=== PATIENT | female | born 1935 | race Caucasian/White ===

== ENCOUNTER 2023-07-22 08:09 | Inpatient (IN) ==
[~2023-07-22 08:09] MED LIST: Buffered Lidocaine 1% SYRIN 1 ml INTRADERM ONE; Famotidine IV 10 MG/ML 2 ml VIAL (20 mg) IV ONE; Lactated Ringers 1000 ml BAG 1,000 ML IV SCH
[2023-07-22] MEDS ORDERED: Tranexamic Acid 1 GM/100ML BAG 2,000 MG/200 ML BAG IV ONE (08:47)
[2023-07-22] MEDS ORDERED: ceFAZolin 2 GM in NS PREMIX 2 GM/100 ML BAG IVPB ONE (08:48)
[2023-07-22] MEDS ORDERED: Famotidine IV 10 MG/ML 2 ml VIAL (20 mg) ONE (08:48)
[2023-07-22 09:16] LABS: Rapid COVID-19 Molecular Undetected (Undetected)
[2023-07-22] MEDS ORDERED: ROPIVACAINE 5 MG/ML 30 ML BTL (0.5%) ONE ×2 (10:07→10:46)
[2023-07-22] MEDS ORDERED: Midazolam 5 mg/5 ml VIAL 1 mg/ml 5 ml VIAL (5 mg) ONE (10:07)
[2023-07-22] MEDS ORDERED: fentaNYL 100 mcg/2 ml 50 MCG/ML VIAL ONE (10:07)
[2023-07-22] MEDS ORDERED: Phenylephrine IV 10 MG/ML 1 ml VIAL ONE (11:52)
[2023-07-22] MEDS ORDERED: Lidocaine 2% PF 5 ML VIAL ONE (11:52)
[2023-07-22] MEDS ORDERED: Propofol 10 MG/ML 20 ML BTL ONE ×2 (14:24→15:17)
[2023-07-22] MEDS ORDERED: HYDROmorphone 1 MG/1 ML SYRINGE IV PRN (14:50)
[2023-07-22] MEDS ORDERED: Naloxone 0.4 mg VIAL 0.4 mg/ml 1 ml VIAL IV PRN (14:50)
[2023-07-22] MEDS ORDERED: fentaNYL 100 mcg/2 ml 50 MCG/ML VIAL IV PRN (14:50)
[2023-07-22] MEDS ORDERED: Morphine 2 MG/ML SYRINGE IV PRN (15:45)
[2023-07-22] MEDS ORDERED: Ondansetron ODT 4 mg TAB 4 MG TAB PO PRN (15:45)
[2023-07-22] MEDS ORDERED: Ondansetron 4 mg VIAL 2 MG/ML 2 ml VIAL IV PRN (15:45)
[2023-07-22] MEDS ORDERED: Magnesium Hydroxide LIQ 30 ML UDC PO PRN (15:45)
[2023-07-22] MEDS ORDERED: Lactulose 30 ml UDC PO PRN (15:45)
[2023-07-22] MEDS: Lactated Ringers 1000 ml BAG 1,000 ML IV SCH (19:00)
[2023-07-22] MEDS: ceFAZolin 1 GM ADVAN 1 GM in NS 0.9% 50 ML 50 ML IVPB SCH (22:01)
[2023-07-22] MEDS: Magnesium Hydroxide LIQ 30 ML UDC PO SCH (22:53)
[2023-07-23] MEDS: Lactated Ringers 1000 ml BAG 1,000 ML IV SCH (03:10)
[2023-07-23 06:19] LABS: Hematocrit 34.6 % (35-45); Hemoglobin 12.2 g/dL (11.5-14.3); Mean Platelet Volume 7.7 fL (7.5-11.2); Platelet Count 229 10^3/uL (150-450)
[2023-07-23] MEDS: ceFAZolin 1 GM ADVAN 1 GM in NS 0.9% 50 ML 50 ML IVPB SCH ×2 (06:33→12:27)
[2023-07-23 06:34] LABS: Calcium 8.8 mg/dL (8.6-10.3); Potassium 4.5 mmol/L (3.5-5.0); eGFR CKD-EPI 55.2 (>60)
[2023-07-23] MEDS ORDERED: Vitamin THERAPEUTIC TAB PO SCH (09:00)
[2023-07-23] MEDS: Magnesium Hydroxide LIQ 30 ML UDC PO SCH (09:57)
[2023-07-23 10:13] VITALS: BP 112/54
== END 2023-07-23 13:40 | disposition home or self-care (01) | DRG 470 ==
LOC: AA 08:09 → INTOOBSV 08:09 → SSU 16:28
PROVIDERS: ADMIT Orthopaedic Surgery Adult Reconstructive Orthopaedic Surgery; ATTEND Orthopaedic Surgery Adult Reconstructive Orthopaedic Surgery